=== PATIENT | male | born 1965 | race Two or more races ===

== ENCOUNTER 2017-03-24 09:11 | Emergency (ER) | payer OTHER ==
[~2017-03-24] VITALS: Ht 167.6 cm; Wt 81.6 kg
--- NOTE | ~2017-03-24 | CR72 ---
[facility] A Service of [facility] & [facility] RADIOLOGY TEXT RESULTS PATIENT: PARISA ARRINGTON LOCATION: [facility] : 61 UNIT #: [id number] AGE: [address]: Susie Davis APRN SEX: M ORDER DR: [id number] [facility] [address] [place], [place] [address] [id number] MR#: [id number] Acc #: [id number] NAME: PARISA ARRINGTON : 1965 SEX: M STUDY DATE/TIME: 03/24/2017 10:14 UNIT: [facility] ROOM: STUDY DESCRIPTION: CR Chest Single View Portable Attending Physician: Susie Davis A.P.R.N. Ordering Physician: Ed Doctor [id number] [facility] Primary Care Physician: Yovanny Kennedy M.D. MEDICAL IMAGING REPORT This report is preliminary unless electronic signature is present EXAM Portable chest HISTORY Chest pain, shortness of air x1 day COMPARISON 03/01/2015 FINDINGS A single AP portable view of the chest shows both lungs to be clear. The heart is normal in size. The mediastinal contour is normal. No significant bone abnormalities are seen. IMPRESSION Normal portable chest. Dictated by... Joe Pascual M.D. THIS IS AN ELECTRONICALLY VERIFIED REPORT Joe Pascual M.D. at 03/25/2017 7:59 AM Courtney TD: 03/24/2017 13:37 JOB #: [id number] MEDICAL IMAGING REPORT Page 1 of 1 COPY
--- NOTE | ~2017-03-24 | EKG ---
PATIENT: PARISA ARRINGTON UNIT #: [id number] Ventricular Rate: 73 BPM Atrial Rate: 73 BPM P-R Interval: 148 ms QRS Duration: 96 ms Q-T Interval: 406 ms QTC Calculation(Bezet): 447 ms P [place]: 26 degrees Calculated R [place]: -26 degrees Calculated T [place]: 0 degrees Diagnosis Line: Normal sinus rhythm Diagnosis Line: Voltage criteria for left ventricular hypertrophy Diagnosis Line: Abnormal ECG Diagnosis Line: When compared with ECG of 02-MAR-2015 02:15, Diagnosis Line: No significant change was found Diagnosis Line: Confirmed by JOE SCHULTZ MD ([id number]) on Diagnosis Line: 03/25/2017 10:45:58 AM INTERPRETING MD: ANTOINE PIMENTEL
[~2017-03-24 09:11] MED LIST: AUGMENTIN PO; CHOLESTEROL MED; FLEXERIL10 MG PO; LIPITOR40 MG PO; LORTAB 7.5-5001 TAB PO; PHENERGAN25 MG PO; SERTRALINE HCL100 M1 PO; SIMVASTATIN40 MG PO; VICODIN 5/1 TAB 5/50 PO; VOLTAREN50 MG PO; VOLTAREN75 MG PO; ZOLOFT PO; ZYRTEC PO
[2017-03-24 09:53] LABS: POC - CKMB <1.0 ng/mL (0.0-7.9); POC - TROPONIN <0.05 ng/mL (<=0.05)
[2017-03-24 10:12] LABS: BASOPHIL# 0.1 X10e3 (0-0.3); BASOPHIL% 0.8 % (0-2.5); EOSINOPHIL# 0.1 X10e3 (0-0.7); EOSINOPHIL% 1.2 % (0.0-7.0); HEMATOCRIT 44.6 % (38.0-50.0); LYMPHOCYTE% 27.2 % (17.0-45.0); MEAN CELL VOLUME 94.1 FL (83-96); MEAN CORPUSCULAR HEMOGLOBIN 31.6 PG (28-34); MEAN CORPUSCULAR HGB CONC 33.6 g/dL (30-36); MEAN PLATELET VOLUME 10.2 FL (6.5-11.5); MONOCYTE# 0.4 X10e3 (0-1.0); MONOCYTE% 5.9 % (3.0-12.0); NEUTROPHIL# 4.8 X10e3 (1.5-7.1); NEUTROPHIL% 64.9 % (40-75); PLATELET COUNT 181 X10e3 (140-420); RED BLOOD COUNT 4.74 X10e (3.90-5.60); RED CELL DISTRIBUTION WIDTH 11.9 % (11.0-15.5); WHITE BLOOD COUNT 7.4 X10e3 (4.0-10.5)
[2017-03-24 10:13] LABS: DIFF IND NO
[2017-03-24 10:39] LABS: ALBUMIN SERUM 4.4 g/dL (3.5-5.0); BILIRUBIN, DIRECT 0.1 mg/dL (0.0-0.2); BILIRUBIN,INDIRECT 0.9 mg/dL (0.0-0.9); BUN/CREATININE RATIO 18.88; CALCIUM SERUM 9.2 mg/dL (8.4-10.2); CREATININE SERUM 0.9 mg/dL (0.6-1.4); GLOM FILT RATE Estimated 97.2 mL/min (>60); POTASSIUM 3.7 mmol/L (3.5-5.1); PROTEIN TOTAL SERUM 7.3 g/dL (6.0-8.3)
[2017-03-24 11:42] LABS: POC - CKMB <1.0 ng/mL (0.0-7.9); POC - TROPONIN <0.05 ng/mL (<=0.05)
== END 2017-03-24 12:39 | disposition home or self-care (01) ==
LOC: CED 09:11
PROVIDERS: Nurse Practitioner
DX: R07.1 Chest pain on breathing (principal); R06.02 Shortness of breath; R11.0 Nausea; R03.0 Elevated blood-pressure reading, without diagnosis of hypertension; E78.5 Hyperlipidemia, unspecified; F32.9 Major depressive disorder, single episode, unspecified; F17.210 Nicotine dependence, cigarettes, uncomplicated
CPT/HCPCS: 36415; 71010; 80048; 80076; 82553; 84484; 85025; 93005; 96374; 99285; J2405